=== PATIENT | female | born 1955 | race Caucasian/White ===

== ENCOUNTER 2019-02-26 13:14 | Emergency (ER) | payer MEDICAID ==
[~2019-02-26] VITALS: Ht 160 cm; Wt 113.1 kg
[2019-02-26 13:16] VITALS: BP 150/65
--- NOTE | 2019-02-26 13:29 | NUR ---
PT AMBULATED TO ER BED 08
--- NOTE | 2019-02-26 13:35 | NUR ---
PT PRESENTS TO ED C/O LACERATION TO LEFT INDEX FINGER APPROX 1 CM X TODAY. PT STATES PAIN IS 5/10 AT THIS TIME.
--- NOTE | 2019-02-26 13:54 | NUR ---
DR. WATSON BEDSIDE EVALUATING PT
[2019-02-26] MEDS ORDERED: LIDOCAINE 1% 500 MG/50 ML VIAL INJ SCH (14:05)
[2019-02-26 14:19] VITALS: BP 150/65
[2019-02-26] MEDS ORDERED: LIDOCAINE MPF 1% - 5 mL VIAL 5 ML ONE (14:36)
[2019-02-26] MEDS ORDERED: BACITRACIN OINT 500 UNITS/GM PKT TP ONE ×2 (15:00)
--- NOTE | 2019-02-26 15:07 | NUR ---
Patient discharged with v/s stable. Written and verbal after care instructions given and explained. Patient verbalized understanding. Ambulatory with steady gait. All questions addressed prior to discharge. Advised to follow up with PMD.
== END 2019-02-26 15:07 | disposition home or self-care (01) ==
LOC: MED 13:14
DX: S61.211A Laceration without foreign body of left index finger without damage to nail, initial encounter (principal); J45.909 Unspecified asthma, uncomplicated; E11.9 Type 2 diabetes mellitus without complications; I11.0 Hypertensive heart disease with heart failure; I50.9 Heart failure, unspecified; Z90.49 Acquired absence of other specified parts of digestive tract; X58.XXXA Exposure to other specified factors, initial encounter; Y93.89 Activity, other specified; Y92.89 Other specified places as the place of occurrence of the external cause; Y99.8 Other external cause status
CPT/HCPCS: 12001; 99283; J2001